=== PATIENT | male | born 1985 | race Caucasian/White ===

== ENCOUNTER 2017-06-10 19:08 | Emergency (ER) | payer OTHER ==
--- NOTE | 2017-06-10 19:22 | CPEKG ---
Heart Rate: 67 RR Interval: 896 P-R Interval: 164 QRSD Interval: 96 QT Interval: 380 QTC Interval: 401 P Blount: 33 QRS Blount: 33 T Wave Blount: 13 EKG Severity - NORMAL ECG - EKG Impression: SINUS RHYTHM Electronically Signed By: Florentin De Jesus 10-Jun-2017 22:02:14
[2017-06-10 19:23] VITALS: RESP 16; TEMP 97.5
[2017-06-10 19:44] LABS: % IMMATURE GRANULYOCYTES 0.3 % (0.0-1.1); ABSOLUTE IMMATURE GRANULOCYTES 0.02 10^3/uL (0.00-0.10); ADD DIFF? NO; ADD MORPH? NO; ADD SCAN? NO; ATYPICAL LYMPHOCYTE FLAG 0 (0-99); FRAGMENT RBC FLAG 0 (0-99); HEMATOCRIT 42.9 % (40.0-51.0); HEMOGLOBIN 15.6 g/dL (13.7-17.5); LEFT SHIFT FLG 0 (0-99); LIPEMIA HEMOLYSIS FLAG 90 (0-99); MEAN CELL HEMOGLOBIN CONCENTR. 36.4 g/dL (32.4-36.7); MEAN CELL VOLUME 88.1 fL (81.5-99.8); PLATELET CLUMPS FLAG 10 (0-99); PLATELET COUNT 179 10^3/uL (150-400); RED BLOOD CELL COUNT 4.87 10^6/uL (4.40-6.38); RED CELL DISTRIBUTION WIDTH 11.6 % (11.5-15.2)
--- NOTE | 2017-06-10 19:44 | EDPHY ---
H & P Stated Complaint: l cp for 2 days Time Seen by Provider: 06/10/17 19:21 HPI/ROS: HPI: This 31-year-old male presents with Chief Complaint: Chest pain Location: Left anterior chest Quality: Dull pain Duration: 2 days Signs and Symptoms: No shortness of breath, no diaphoresis, no radiation, no wheezing, no palpitations, no nausea, no vomiting, no injury, + cardiac awareness, + anxiety, no indigestion Timing: Sudden, intermittent, lasting hours on end Severity: 10/01 Context: Patient complains of dull intermittent nonradiating left anterior chest pain that lasts for several hours and resolves on its own for 2 days. It has occurred were driving in the car, while eating dinner and while watching TV. No prior cardiac history. No family cardiac history. Right-hand dominant. Pain is not correlated with eating specific foods. + tobacco use; mild intermittent cough. Modifying Factors: Has not tried anything for the symptoms Comment: ROS: Constitutional: No fever, no chills, no weight loss Eyes: No blurred vision Respiratory: No shortness of breath, no cough Cardiovascular: + chest pain Gastrointestinal: No nausea, no vomiting no diarrhea Genitourinary: No dysuria Extremities: No myalgias Neurologic: No weakness, no numbness Skin: No rashes Hematologic: No bruising, no bleeding MEDICAL/SURGICAL/SOCIAL HISTORY: Generally healthy. Denies any surgical history. Employed CONSTITUTIONAL: Overweight well-appearing adult male, awake and alert, no obvious distress HEENT: Atraumatic and normocephalic, PERRL, EOMI. Tympanic membranes clear. Oropharynx clear, no exudate and moist pink mucosa. Airway patent. No lymphadenopathy. No meningismus. Cardiovascular: Normal S1/S2, regular rate, regular rhythm, without murmur rub or gallop. PULMONARY/CHEST: Symmetrical and reproducible tenderness with palpation. Clear to auscultation bilaterally. Good air movement. No accessory muscle usage. ABDOMEN: Soft, nondistended, nontender, no rebound, no guarding, no peritoneal signs, no masses or organomegaly. No CVAT. EXTREMITIES: 2/2 pulses, no deformities, no clubbing, no cyanosis or edema. NEUROLOGICAL: no focal neuro deficits. GCS 15. SKIN: Warm and dry, no erythema. no rash. Good capillary refill. Source: Patient Exam Limitations: No limitations - Personal History Current Tetanus Diphtheria and Acellular Pertussis (TDAP): Yes - Medical/Surgical History Other PMH: hypothyroid, shoulder surgery - Social History Smoking Status: Current every day smoker Constitutional: Initial Vital Signs Temperature (C) 36.4 C 06/10/17 19:20 Heart Rate 73 06/10/17 19:20 Respiratory Rate 16 06/10/17 19:20 Blood Pressure 167/110 H 06/10/17 19:20 O2 Sat (%) 96 06/10/17 19:20 O2 Delivery Mode Room Air Allergies/Adverse Reactions: No Known Allergies Allergy (Unverified 06/10/17 19:19) Home Medications: Medication Instructions Recorded Levothyroxine 06/10/17 predniSONE [predniSONE TAPER] 10 mg PO DAILY 6 Days ea 06/10/17 Medical Decision Making - Diagnostics EKG Interpretation: 12 lead EKG: Indication: Chest pain Rhythm: Normal sinus rhythm, rate 67 beats per minute Fence: Normal Intervals: Normal QRS: Normal ST segments: Normal INTERPRETATION: Normal EKG The 12 lead EKG was interpreted by myself. No EKGs for comparison. Imaging Results: Imaging Impressions Chest X-Ray 06/10/17 19:37 Impression: Question mild bronchitis. No other findings for acute cardiopulmonary abnormality. ED Course/Re-evaluation: EKG, chest x-ray, labs Chest pain is atypical in nature. JANINA risk score is low for ACS. EKG my read no ischemic signs Chest x-ray my read shows mild peribronchial cuffing; no opacity/effusion/ pneumothorax. No hypoxia/wheezing No signs of pulmonary embolism/sepsis/acute coronary syndrome Given PO prednisone 60 mg tablet and advised to stop smoking. Bronchitis appears to be viral in nature. Antibiotics are not indicated. Differential Diagnosis: Chest pain including but not limited to myocardial ischemia, pulmonary embolus, chest wall pain, pleural inflammation and pulmonary infectious causes. - Data Points Laboratory Results: Laboratory Results 06/10/17 19:35 06/10/17 19:35 06/10/17 06/10/17 06/10/17 19:35 19:35 19:35 WBC 6.54 10^3/uL 10^3/uL (3.80-9.50) RBC 4.87 10^6/uL 10^6/uL (4.40-6.38) Hgb 15.6 g/dL g/dL (13.7-17.5) Hct 42.9 % % (40.0-51.0) MCV 88.1 fL fL (81.5-99.8) MCH 32.0 pg pg (27.9-34.1) MCHC 36.4 g/dL g/dL (32.4-36.7) RDW 11.6 % % (11.5-15.2) Plt Count 179 10^3/uL 10^3/uL (150-400) MPV 11.0 fL fL (8.7-11.7) Neut % (Auto) 55.2 % % (39.3-74.2) Lymph % (Auto) 34.7 % % (15.0-45.0) [place] % (Auto) 7.8 % % (4.5-13.0) Eos % (Auto) 1.5 % % (0.6-7.6) Baso % (Auto) 0.5 % % (0.3-1.7) Nucleat RBC Rel Count 0.0 % % (0.0-0.2) Absolute Neuts (auto) 3.61 10^3/uL 10^3/uL (1.70-6.50) Absolute Lymphs (auto) 2.27 10^3/uL 10^3/uL (1.00-3.00) Absolute Monos (auto) 0.51 10^3/uL 10^3/uL (0.30-0.80) Absolute Eos (auto) 0.10 10^3/uL 10^3/uL (0.03-0.40) Absolute Basos (auto) 0.03 10^3/uL 10^3/uL (0.02-0.10) Absolute Nucleated RBC 0.00 10^3/uL 10^3/uL (0-0.01) Immature Gran % 0.3 % % (0.0-1.1) Immature Gran # 0.02 10^3/uL 10^3/uL (0.00-0.10) D-Dimer < 0.27 ug/mLFEU ug/mLFEU (0.00-0.50) Sodium 140 mEq/L mEq/L (134-144) Potassium 4.0 mEq/L mEq/L (3.5-5.2) Chloride 101 mEq/L mEq/L (97-110) Carbon Dioxide 23 mEq/l mEq/l (22-31) Anion Gap 16 mEq/L mEq/L (8-16) BUN 13 mg/dL mg/dL (7-23) Creatinine 1.0 mg/dL mg/dL (0.7-1.3) Estimated GFR > 60 Glucose 128 mg/dL H mg/dL (70-100) Calcium 10.0 mg/dL mg/dL (8.5-10.4) Total Bilirubin 1.3 mg/dL mg/dL (0.1-1.4) Conjugated Bilirubin 0.4 mg/dL mg/dL (0.0-0.5) Unconjugated Bilirubin 0.9 mg/dL mg/dL (0.0-1.1) AST 49 IU/L IU/L (17-59) ALT 78 IU/L H IU/L (21-72) Alkaline Phosphatase 63 IU/L IU/L (38-126) Troponin I < 0.012 ng/mL ng/mL (0.000-0.034) Total Protein 8.2 g/dL g/dL (6.3-8.2) Albumin 4.9 g/dL g/dL (3.5-5.0) Lipase 53 IU/L IU/L (23-300) Departure - Departure Disposition: Home, Routine, Self-Care Clinical Impression: Atypical chest pain, Viral bronchitis Condition: Good Instructions: Chest Pain (ED), Acute Bronchitis (ED) Additional Instructions: Your chest pain today does not appear to be caused by cardiac abnormality. Chest x-ray today shows findings consistent with bronchitis. Your bronchitis appears to be viral in nature. Antibiotics will not help this. Please take your steroid taper as directed and stop smoking. If chest pain continues after completion of antibiotic course, please follow up with primary care provider for further evaluation. Referrals: Gladis Edward PA [Primary Care Provider] - As per Instructions Prescriptions: predniSONE [predniSONE TAPER] 10 mg PO DAILY 6 Days ea
[2017-06-10 20:14] LABS: ALANINE AMINOTRANSFERASE 78 IU/L (21-72); ALBUMIN 4.9 g/dL (3.5-5.0); ALKALINE PHOSPHATASE 63 IU/L (38-126); ANION GAP 16 mEq/L (8-16); ASPARTATE AMINOTRANSFERASE 49 IU/L (17-59); BILIRUBIN,TOTAL 1.3 mg/dL (0.1-1.4); BILIRUBIN-CONJUGATED 0.4 mg/dL (0.0-0.5); BILIRUBIN-UNCONJUGATED 0.9 mg/dL (0.0-1.1); CARBON DIOXIDE 23 mEq/l (22-31); CHLORIDE 101 mEq/L (97-110); GLOMERULAR FILTRATION RATE > 60; GLUCOSE 128 mg/dL (70-100); SODIUM 140 mEq/L (134-144); TOTAL PROTEIN 8.2 g/dL (6.3-8.2)
[2017-06-10 20:23] LABS: TROPONIN I < 0.012 ng/mL (0.000-0.034)
[2017-06-10] MEDS ORDERED: predniSONE 20 MG TAB PO ONE (20:46)
[2017-06-10 20:56] VITALS: O2SAT 95
[2017-06-10 21:06] VITALS: BP 143/99; PULSE 75
== END 2017-06-10 21:04 | disposition home or self-care (01) ==
DX: R07.89 Other chest pain (principal); J20.8 Acute bronchitis due to other specified organisms; F17.200 Nicotine dependence, unspecified, uncomplicated